=== PATIENT | male | born 1960 | race Caucasian/White ===

== ENCOUNTER 2022-09-26 05:30 | Inpatient (IN) | payer OTHER ==
[~2022-09-26] VITALS: Ht 172.7 cm; Wt 79.8 kg
[2022-09-26] MEDS ORDERED: CEFAZOLIN SOD 2 GM in D5W 50 ML IV ONE (06:00)
[2022-09-26] MEDS ORDERED: ACETAMINOPHEN 500 MG TABLET PO ONE (06:00)
[2022-09-26] MEDS ORDERED: CELECOXIB 100 MG CAPSULE PO ONE (06:00)
[2022-09-26] MEDS ORDERED: GABAPENTIN 300 MG CAPSULE PO ONE (06:00)
[2022-09-26] MEDS ORDERED: SCOPOLAMINE HYDROBROMIDE 1 MG PATCH .72 H (TRANSDERM-SCOP) TD ONE ×2 (06:00→06:16)
[2022-09-26] MEDS ORDERED: oxyCODONE HCL 10 MG TAB.ER.12H PO ONE ×2 (06:00→06:16)
[2022-09-26] MEDS ORDERED: ACETAMINOPHEN 500 MG TABLET ONE (06:02)
[2022-09-26] MEDS ORDERED: CELECOXIB 100 MG CAPSULE ONE (06:02)
[2022-09-26] MEDS ORDERED: GABAPENTIN 300 MG CAPSULE ONE (06:16)
[2022-09-26] MEDS ORDERED: SIMV-341 PO (07:03)
[2022-09-26] MEDS ORDERED: LEVO137T2 PO (07:03)
[2022-09-26] MEDS ORDERED: KETOROLAC TROMETHAMINE 30 MG VIAL ONE (07:30)
[2022-09-26] MEDS ORDERED: MIDAZOLAM HCL/PF 2 MG/2 ML SYRINGE ONE (07:30)
[2022-09-26] MEDS ORDERED: SEVOFLURANE 15 MIN GAS INH ONE (07:30)
[2022-09-26] MEDS ORDERED: TRANEXAMIC ACID 1,000 MG/10 ML VIAL ONE (07:30)
[2022-09-26] MEDS ORDERED: METOCLOPRAMIDE HCL 10 MG/2 ML VIAL ONE (07:30)
[2022-09-26] MEDS ORDERED: ePHEDrine sulfate 50 MG/ML VIAL ONE (07:30)
[2022-09-26] MEDS ORDERED: ONDANSETRON HCL 4 MG/2 ML VIAL ONE (07:30)
[2022-09-26] MEDS ORDERED: PROPOFOL 200MG/ 20ML VIAL (DIPRIVAN) IV ONE (07:30)
[2022-09-26] MEDS ORDERED: GLYCOPYRROLATE 0.2 MG/ML VIAL ONE (07:30)
[2022-09-26] MEDS ORDERED: NS 1000 ML IV.SOLN IV ONE (07:30)
[2022-09-26] MEDS ORDERED: fentaNYL CITRATE/PF 100 MCG/2 ML AMP ONE (07:30)
[2022-09-26] MEDS ORDERED: VANCOMYCIN HCL 1000 MG/VIAL IV ONE (07:30)
[2022-09-26] MEDS ORDERED: DEXAMETHASONE SOD PHOSPHATE 4 MG/ML VIAL ONE (07:30)
[2022-09-26] MEDS ORDERED: KETOROLAC TROMETHAMINE 30 MG VIAL IVP PRN (09:00)
[2022-09-26] MEDS ORDERED: NALOXONE HCL 0.4 MG/ML AMP (NARCAN) IVP PRN ×6 (09:00→10:30)
[2022-09-26] MEDS ORDERED: ePHEDrine sulfate 50 MG/ML VIAL IVP PRN (09:00)
[2022-09-26] MEDS ORDERED: MEPERIDINE HCL/PF 25 MG/ML DISP.SYRIN IVP PRN (09:00)
[2022-09-26] MEDS ORDERED: ONDANSETRON HCL 4 MG/2 ML VIAL IVP PRN ×2 (09:00→11:45)
[2022-09-26] MEDS ORDERED: HYDROmorphone 1 MG/ML INJ. CARTRIDGE IVP PRN ×5 (09:00→11:00)
[2022-09-26] MEDS ORDERED: LR 1,000 ML IV SCH (09:00)
[2022-09-26] MEDS ORDERED: BUPIVACAINE LIPOSOME/PF 266 MG/20 ML VIAL INFIL ONE (09:34)
[2022-09-26] MEDS ORDERED: LACTULOSE 20 GM/30 ML UDC PO PRN (10:30)
[2022-09-26] MEDS ORDERED: DIPHENHYDRAMINE HCL 25 MG CAPSULE PO PRN (10:30)
[2022-09-26] MEDS ORDERED: BISACODYL 10 MG/SUPPOSITORY RC PRN (10:30)
[2022-09-26] MEDS ORDERED: METOCLOPRAMIDE HCL 10 MG/2 ML VIAL IVP PRN (10:30)
[2022-09-26] MEDS ORDERED: HYDROmorphone 1 MG/ML INJ. CARTRIDGE ONE (10:46)
[2022-09-26] MEDS ORDERED: oxyCODONE HCL 5 MG TABLET PO PRN ×2 (11:00)
[2022-09-26] MEDS ORDERED: traMADol HCL HCL 50 MG TABLET (ULTRAM) PO PRN (11:00)
[2022-09-26] MEDS ORDERED: LORATADINE 10 MG TABLET PO PRN (11:00)
[2022-09-26] MEDS ORDERED: NS 500 ML IV ONE (11:55)
[2022-09-26 12:36] VITALS: BP_SYST 136; PULSE 82; RESP 16; TEMP 96.4; O2SAT 92
[2022-09-26] MEDS: ceFAZolin SODIUM 2 GM in D5W 50 ML IV SCH ×2 (13:57→22:18)
[2022-09-26] MEDS: KETOROLAC TROMETHAMINE 10 MG TABLET (TORADOL) PO SCH ×2 (13:58→22:00)
[2022-09-26] MEDS: ACETAMINOPHEN 500 MG TABLET PO SCH ×2 (13:58→22:17)
[2022-09-26] MEDS ORDERED: NACL 0.9% 1,000 ML IV SCH ×2 (16:57→17:00)
[2022-09-26] MEDS: NACL 0.9% 1,000 ML IV SCH (17:12)
[2022-09-26 18:40] VITALS: BP_SYST 81; PULSE 59; RESP 18; TEMP 97.8
[2022-09-26 20:00] VITALS: BP_SYST 97; PULSE 73; RESP 18; TEMP 98; O2SAT 100
[2022-09-26] MEDS: SENNOSIDES/DOCUSATE SODIUM 1 TAB TABLET(SENOKOT-S) PO SCH (22:15)
[2022-09-27] VITALS (7 sets, daily range): BP systolic 80–107; PULSE 74–94; RESP 18–19; TEMP 97.6–98.4; O2SAT 95–97
[2022-09-27] MEDS: NACL 0.9% 1,000 ML IV SCH (03:19)
[2022-09-27 05:53] LABS: BASOPHILS % (AUTO) 0.3 % (0.0-2.0); EOSINOPHILS # (AUTO) 0.2 K/uL (0.0-0.4); EOSINOPHILS % (AUTO) 1.7 % (0.0-4.0); HEMATOCRIT 33.9 % (36-54); HEMOGLOBIN 11.2 g/dL (14.0-18.0); LYMPHOCYTES # (AUTO) 1.4 K/uL (1.0-5.5); LYMPHOCYTES % (AUTO) 15.4 % (20.5-51.5); MEAN CORPUSCULAR HEMOGLOBIN 30 pg (27-31); MEAN CORPUSCULAR HGB CONC 33 % (32-36); MEAN CORPUSCULAR VOLUME 90 fL (79.0-98.0); MONOCYTES # (AUTO) 0.7 K/uL (0.0-1.0); MONOCYTES % (AUTO) 7.9 % (1.7-9.3); NEUTROPHILS # (AUTO) 6.6 K/uL (1.8-7.7); NEUTROPHILS % (AUTO) 74.7 % (40.0-70.0); PLATELET COUNT (AUTO) 211 K/uL (130-430); RED BLOOD CELL COUNT(AUTO) 3.74 MIL/uL (4.2-6.2); RED CELL DISTRIBUTION WIDTH 13.1 % (9.0-15.0); WHITE BLOOD COUNT (AUTO) 8.8 K/uL (4.8-10.8)
[2022-09-27 06:09] LABS: ALBUMIN 2.7 g/dL (3.4-4.8); CALCIUM 7.8 mg/dL (8.4-11.0); CREATININE 0.89 mg/dL (0.55-1.30); POTASSIUM 3.4 mmol/L (3.5-5.1); TOTAL BILIRUBIN 0.5 mg/dL (0.0-1.0); TOTAL PROTEIN, SERUM 4.8 g/dL (6.4-8.3)
[2022-09-27] MEDS: ACETAMINOPHEN 500 MG TABLET PO SCH ×2 (06:20→14:29)
[2022-09-27] MEDS: KETOROLAC TROMETHAMINE 10 MG TABLET (TORADOL) PO SCH (06:21)
[2022-09-27] MEDS: ceFAZolin SODIUM 2 GM in D5W 50 ML IV SCH (06:21)
[2022-09-27] MEDS ORDERED: LEVOTHYROXINE SODIUM 0.137 MG TABLET PO SCH (07:00)
[2022-09-27] MEDS ORDERED: POTASSIUM CHLORIDE 20 MEQ/PKT PACKET PO ONE (08:00)
[2022-09-27] MEDS ORDERED: DECADRON 4 MG TABLET PO SCH (09:00)
[2022-09-27] MEDS ORDERED: SIMVASTATIN 10 MG TABLET PO SCH (09:00)
[2022-09-27] MEDS ORDERED: ASPIRIN 81 MG TAB.CHEW PO SCH (09:00)
[2022-09-27] MEDS: SENNOSIDES/DOCUSATE SODIUM 1 TAB TABLET(SENOKOT-S) PO SCH (09:51)
[2022-09-27] MEDS ORDERED: CELECOXIB 200 MG CAPSULE PO SCH (11:00)
== END 2022-09-27 14:46 | disposition home health service (06) | DRG 470 ==
LOC: SMU 05:30
PROVIDERS: ADMIT Student in an Organized Health Care Education/Training Program; ATTEND Student in an Organized Health Care Education/Training Program
PROC: 0SRB04Z Replacement of Left Hip Joint with Ceramic on Polyethylene Synthetic Substitute, Open Approach (ICD-10-PCS; principal; 2022-09-26 07:30)
DX: M16.12 Unilateral primary osteoarthritis, left hip (principal); E44.1 Mild protein-calorie malnutrition; I95.1 Orthostatic hypotension; Z68.26 Body mass index [BMI] 26.0-26.9, adult
CPT/HCPCS: 36415; 72170-TC; 76001; 80053; 85025; 87081; 88305; 88311; 96379; 97116-GP; 97163-GP; 97530-GP; A4649; C1713; C1776; C9290; J0690; J1100; J1170; J1885; J2405; J2704; J2765; J3010; J3370; J3465; J3490; J7030; J7060; J8540

== ENCOUNTER 2023-10-07 17:49 | Inpatient (IN) | payer OTHER ==
[~2023-10-07] VITALS: Ht 172.7 cm; Wt 73.6 kg
[~2023-10-07 17:49] MED LIST: LEVO137T2 PO; SIMV-341 PO
[2023-10-07 18:13] VITALS: BP_SYST 183; PULSE 90; RESP 18; TEMP 97.8; O2SAT 95
[2023-10-07] MEDS: LABETALOL HCL 20 MG/4 ML CARTRIDGE IVP ONE (18:37)
[2023-10-07 18:39] LABS: BASOPHILS # (AUTO) 0.2 K/uL (0.0-0.2); BASOPHILS % (AUTO) 3.2 % (0.0-2.0); EOSINOPHILS # (AUTO) 0.5 K/uL (0.0-0.4); EOSINOPHILS % (AUTO) 6.9 % (0.0-4.0); HEMATOCRIT 44.1 % (36-54); HEMOGLOBIN 15.4 g/dL (14.0-18.0); LYMPHOCYTES # (AUTO) 1.7 K/uL (1.0-5.5); LYMPHOCYTES % (AUTO) 22.8 % (20.5-51.5); MEAN CORPUSCULAR HEMOGLOBIN 31 pg (27-31); MEAN CORPUSCULAR HGB CONC 35 % (32-36); MEAN CORPUSCULAR VOLUME 88 fL (79.0-98.0); MONOCYTES # (AUTO) 0.6 K/uL (0.0-1.0); MONOCYTES % (AUTO) 7.9 % (1.7-9.3); NEUTROPHILS # (AUTO) 4.4 K/uL (1.8-7.7); NEUTROPHILS % (AUTO) 59.2 % (40.0-70.0); PLATELET COUNT (AUTO) 271 K/uL (130-430); RED BLOOD CELL COUNT(AUTO) 5.03 MIL/uL (4.2-6.2); RED CELL DISTRIBUTION WIDTH 13.1 % (9.0-15.0); WHITE BLOOD COUNT (AUTO) 7.4 K/uL (4.8-10.8)
[2023-10-07 19:13] LABS: ANION GAP 6 (5-15); CALCIUM 9.2 mg/dL (8.4-11.0); CARBON DIOXIDE 32 mmol/L (23-29); CHLORIDE 101 mmol/L (98-107); CREATININE 1.13 mg/dL (0.55-1.30); GFR AFRICAN AMERICAN 85 mL/min (>90); GLUCOSE 124 mg/dL (74-106); POTASSIUM 3.3 mmol/L (3.5-5.1); SODIUM SERUM 139 mmol/L (136-145); UREA NITROGEN, BLOOD 13 mg/dL (8-21)
[2023-10-07 19:20] LABS: GFR NON AFRICAN-AMERICAN 70 mL/min (>90)
[2023-10-07] MEDS ORDERED: METO25TA6 PO (19:51)
[2023-10-07] MEDS: METOPROLOL TARTRATE 25 MG TABLET PO ONE (20:31)
[2023-10-07] MEDS: ACETAMINOPHEN 500 MG TABLET PO ONE (20:47)
[2023-10-07] MEDS ORDERED: AUG875 PO (21:00)
[2023-10-07] MEDS: MORPHINE 2 MG/ML INJ. SYRINGE IVP ONE (21:39)
[2023-10-07 22:53] VITALS: BP_SYST 156; PULSE 61; RESP 18; TEMP 97
[2023-10-08 00:02] VITALS: BP_SYST 144; PULSE 63; RESP 18; TEMP 97.5; O2SAT 96
[2023-10-08] MEDS: AMOXICILLIN/POTASSIUM CLAV 875 MG TABLET PO ONE (05:32)
[2023-10-08 08:18] VITALS: BP_SYST 112; PULSE 67; RESP 18; TEMP 97.8; O2SAT 100
[2023-10-08 10:41] VITALS: O2SAT 100
[2023-10-08 12:02] VITALS: BP_SYST 142; PULSE 70; RESP 18; TEMP 97.4; O2SAT 99
[2023-10-08] MEDS ORDERED: HYDROcodone/ACETAMIN 5-325 MG TAB (NORCO/ VICODIN) PO PRN (13:00)
[2023-10-08] MEDS ORDERED: ACETAMINOPHEN 325 MG TABLET PO PRN (13:00)
[2023-10-08] MEDS ORDERED: LORazepam 2 MG/ML VIAL IVP PRN (13:00)
[2023-10-08] MEDS ORDERED: ONDANSETRON HCL 4 MG/2 ML VIAL IVP PRN (13:00)
[2023-10-08] MEDS ORDERED: NALOXONE HCL 0.4 MG/ML AMP (NARCAN) IVP PRN ×2 (13:00)
[2023-10-08] MEDS: LEVOTHYROXINE SODIUM 0.137 MG TABLET PO ONE (16:08)
[2023-10-08] MEDS: METOPROLOL TARTRATE 25 MG TABLET PO ONE (16:08)
[2023-10-08] MEDS: NORMAL SALINE 5 ML DISP.SYRIN IVF SCH (16:09)
[2023-10-08 16:42] VITALS: BP_SYST 152; PULSE 69; RESP 17; TEMP 97.6; O2SAT 97
[2023-10-08 20:00] VITALS: BP_SYST 120; PULSE 63; RESP 18; TEMP 98.9; O2SAT 98
[2023-10-08] MEDS: AMOXICILLIN/POTASSIUM CLAV 875 MG TABLET PO SCH (21:00)
[2023-10-08] MEDS: SIMVASTATIN 20 MG TABLET PO SCH (21:18)
[2023-10-08] MEDS: METOPROLOL TARTRATE 25 MG TABLET PO SCH (21:19)
[2023-10-08] MEDS: ACETAMINOPHEN 325 MG TABLET PO PRN (23:01)
[2023-10-09 00:12] VITALS: BP_SYST 111; PULSE 64; RESP 16; TEMP 98.6; O2SAT 99
[2023-10-09] MEDS: HYDROcodone/ACETAMIN 10-325 MG TAB PO PRN (03:20)
[2023-10-09 06:26] LABS: ALBUMIN 3.3 g/dL (3.4-4.8); CALCIUM 8.9 mg/dL (8.4-11.0); CREATININE 1.24 mg/dL (0.55-1.30); PHOSPHORUS 3.7 mg/dL (2.7-4.5); POTASSIUM 3.9 mmol/L (3.5-5.1); TOTAL BILIRUBIN 0.4 mg/dL (0.0-1.0); TOTAL PROTEIN, SERUM 6.1 g/dL (6.4-8.3)
[2023-10-09] MEDS: LEVOTHYROXINE SODIUM 0.137 MG TABLET PO SCH (06:44)
[2023-10-09 06:52] LABS: BASOPHILS # (AUTO) 0.1 K/uL (0.0-0.2); BASOPHILS % (AUTO) 0.7 % (0.0-2.0); EOSINOPHILS # (AUTO) 0.7 K/uL (0.0-0.4); EOSINOPHILS % (AUTO) 9.2 % (0.0-4.0); HEMATOCRIT 43.1 % (36-54); HEMOGLOBIN 14.4 g/dL (14.0-18.0); LYMPHOCYTES # (AUTO) 1.4 K/uL (1.0-5.5); LYMPHOCYTES % (AUTO) 17.9 % (20.5-51.5); MEAN CORPUSCULAR HEMOGLOBIN 30 pg (27-31); MEAN CORPUSCULAR HGB CONC 33 % (32-36); MEAN CORPUSCULAR VOLUME 90 fL (79.0-98.0); MONOCYTES # (AUTO) 0.7 K/uL (0.0-1.0); MONOCYTES % (AUTO) 8.8 % (1.7-9.3); NEUTROPHILS # (AUTO) 5.1 K/uL (1.8-7.7); NEUTROPHILS % (AUTO) 63.4 % (40.0-70.0); PLATELET COUNT (AUTO) 259 K/uL (130-430); RED BLOOD CELL COUNT(AUTO) 4.79 MIL/uL (4.2-6.2); RED CELL DISTRIBUTION WIDTH 13.4 % (9.0-15.0); WHITE BLOOD COUNT (AUTO) 8.1 K/uL (4.8-10.8)
[2023-10-09 08:09] VITALS: BP_SYST 133; PULSE 63; RESP 18; TEMP 97.3; O2SAT 98
[2023-10-09 09:30] VITALS: O2SAT 98
[2023-10-09] MEDS ORDERED: CARV6.2554 PO (10:29)
[2023-10-09 12:32] VITALS: BP_SYST 96; PULSE 58; RESP 18; TEMP 99; O2SAT 99
[2023-10-09 13:53] VITALS: BP_SYST 96; PULSE 58; RESP 18; TEMP 99; O2SAT 98
[2023-10-09] MEDS ORDERED: CARVEDILOL 12.5 MG TABLET (COREG) PO SCH (21:00)
== END 2023-10-09 15:16 | disposition home or self-care (01) | DRG 305 ==
LOC: SED 17:49 → UNDOADMIN 22:37 → STU 22:37 → SMU 10-09 13:47
PROVIDERS: ADMIT Preventive Medicine Preventive Medicine/Occupational Environmental Medicine; ATTEND Preventive Medicine Preventive Medicine/Occupational Environmental Medicine
DX: I16.0 Hypertensive urgency (principal); E44.0 Moderate protein-calorie malnutrition; E88.09 Other disorders of plasma-protein metabolism, not elsewhere classified; E78.5 Hyperlipidemia, unspecified; E87.6 Hypokalemia; R73.9 Hyperglycemia, unspecified; E03.9 Hypothyroidism, unspecified; Z85.89 Personal history of malignant neoplasm of other organs and systems; Z79.899 Other long term (current) drug therapy; Z88.8 Allergy status to other drugs, medicaments and biological substances; Z68.24 Body mass index [BMI] 24.0-24.9, adult
CPT/HCPCS: 36415; 70450-TC; 71045; 80048; 80053; 83735; 83880; 84100; 84484; 85025; 93005; 93306; 96374; 99285; G0378; J2270

== ENCOUNTER 2023-10-17 09:02 | Inpatient (IN) | payer OTHER ==
[~2023-10-17] VITALS: Ht 172.7 cm; Wt 74.4 kg
[~2023-10-17 09:02] MED LIST changes: +AUG875 PO; +CARV6.2554 PO
[2023-10-17 09:13] VITALS: BP_SYST 195; PULSE 73; RESP 16; TEMP 97.5; O2SAT 96
[2023-10-17] MEDS: PROCHLORPERAZINE EDISYLATE 10 MG/2 ML VIAL IM ONE (09:51)
[2023-10-17] MEDS: KETOROLAC TROMETHAMINE 30 MG VIAL IM ONE (09:51)
[2023-10-17] MEDS: cloNIDine HCL 0.1 MG TABLET PO ONE (09:52)
[2023-10-17] MEDS: hydrALAZINE HCL 20 MG/ML VIAL IVP ONE (11:10)
[2023-10-17] MEDS: MORPHINE 4 MG INJ. 4 MG/ML VIAL IVP ONE (11:12)
[2023-10-17] MEDS ORDERED: DICL50TA7 PO (12:31)
[2023-10-17] MEDS ORDERED: PHE25 PO (12:31)
[2023-10-17] MEDS ORDERED: LORA-259 (12:31)
[2023-10-17] MEDS ORDERED: CYCL10TA25 (12:31)
[2023-10-17] MEDS ORDERED: PRAV40TA63 (12:32)
[2023-10-17] MEDS ORDERED: OXYC-117 (12:34)
[2023-10-17 12:38] LABS: BASOPHILS % (AUTO) 0.4 % (0.0-2.0); EOSINOPHILS # (AUTO) 0.1 K/uL (0.0-0.4); EOSINOPHILS % (AUTO) 0.8 % (0.0-4.0); LYMPHOCYTES % (AUTO) 8.6 % (20.5-51.5); MEAN CORPUSCULAR HEMOGLOBIN 30 pg (27-31); MEAN CORPUSCULAR HGB CONC 33 % (32-36); MEAN CORPUSCULAR VOLUME 89 fL (79.0-98.0); MONOCYTES # (AUTO) 0.5 K/uL (0.0-1.0); MONOCYTES % (AUTO) 4.2 % (1.7-9.3); NEUTROPHILS # (AUTO) 9.5 K/uL (1.8-7.7); PLATELET COUNT (AUTO) 255 K/uL (130-430); RED BLOOD CELL COUNT(AUTO) 5.08 MIL/uL (4.2-6.2); RED CELL DISTRIBUTION WIDTH 12.8 % (9.0-15.0); WHITE BLOOD COUNT (AUTO) 11.1 K/uL (4.8-10.8)
[2023-10-17 12:58] LABS: ANION GAP 3 (5-15); CALCIUM 9.3 mg/dL (8.4-11.0); CARBON DIOXIDE 33 mmol/L (23-29); CHLORIDE 101 mmol/L (98-107); CREATININE 1.18 mg/dL (0.55-1.30); GFR AFRICAN AMERICAN 81 mL/min (>90); GLUCOSE 113 mg/dL (74-106); POTASSIUM 4.7 mmol/L (3.5-5.1); SODIUM SERUM 137 mmol/L (136-145); UREA NITROGEN, BLOOD 15 mg/dL (8-21)
[2023-10-17 13:05] LABS: GFR NON AFRICAN-AMERICAN 67 mL/min (>90)
[2023-10-17] MEDS ORDERED: FIORCET PO PRN (14:00)
[2023-10-17] MEDS: DIVALPROEX SODIUM 250 MG TABLET(DEPAKOTE) PO ONE (15:32)
[2023-10-17] MEDS: CYCLOBENZAPRINE HCL 10 MG TABLET (FLEXERIL) PO SCH (15:34)
[2023-10-17] MEDS: traMADol HCL HCL 50 MG TABLET (ULTRAM) PO PRN (17:50)
[2023-10-17] MEDS: DIVALPROEX SODIUM 250 MG TABLET(DEPAKOTE) PO SCH (21:26)
[2023-10-17] MEDS: ONDANSETRON HCL 4 MG/2 ML VIAL IVP PRN (21:28)
[2023-10-17] MEDS: HYDROmorphone 1 MG/ML INJ. CARTRIDGE IVP PRN (21:28)
[2023-10-17 22:00] VITALS: BP_SYST 209; PULSE 84; RESP 16; TEMP 97.8; O2SAT 97
[2023-10-18] VITALS (7 sets, daily range): BP systolic 133–159; PULSE 72–84; RESP 15–17; TEMP 98–98.7; O2SAT 95–98
[2023-10-18 08:24] LABS: CALCIUM 9.1 mg/dL (8.4-11.0); CREATININE 1.03 mg/dL (0.55-1.30); POTASSIUM 3.6 mmol/L (3.5-5.1)
[2023-10-18 10:50] LABS: BASOPHILS % (AUTO) 0.4 % (0.0-2.0); EOSINOPHILS # (AUTO) 0.2 K/uL (0.0-0.4); EOSINOPHILS % (AUTO) 2.7 % (0.0-4.0); HEMATOCRIT 42.9 % (36-54); HEMOGLOBIN 14.6 g/dL (14.0-18.0); LYMPHOCYTES % (AUTO) 22.1 % (20.5-51.5); MEAN CORPUSCULAR HEMOGLOBIN 30 pg (27-31); MEAN CORPUSCULAR HGB CONC 34 % (32-36); MEAN CORPUSCULAR VOLUME 88 fL (79.0-98.0); MONOCYTES # (AUTO) 0.8 K/uL (0.0-1.0); MONOCYTES % (AUTO) 8.7 % (1.7-9.3); NEUTROPHILS # (AUTO) 5.8 K/uL (1.8-7.7); NEUTROPHILS % (AUTO) 66.1 % (40.0-70.0); PLATELET COUNT (AUTO) 263 K/uL (130-430); RED BLOOD CELL COUNT(AUTO) 4.86 MIL/uL (4.2-6.2); WHITE BLOOD COUNT (AUTO) 8.8 K/uL (4.8-10.8)
[2023-10-18] MEDS: ACETAMINOPHEN 500 MG TABLET PO PRN (13:24)
[2023-10-18 22:23] LABS: COLLECTION TIME,URINE 24 HR; SODIUM TIMED,URINE 39 mmol/L; TOTAL VOLUME 24HRS,URINE 3100 mL
[2023-10-18 22:24] LABS: SODIUM URINE, 24HR CALC 121 mmol/24H (40-220)
[2023-10-19] VITALS: BP_SYST 133; BP_SYST 157; PULSE 74; PULSE 78; RESP 16; TEMP 97.4; TEMP 98.3; O2SAT 96; O2SAT 98
[2023-10-19 05:13] LABS: BASOPHILS # (AUTO) 0.1 K/uL (0.0-0.2); EOSINOPHILS # (AUTO) 0.5 K/uL (0.0-0.4); EOSINOPHILS % (AUTO) 7.6 % (0.0-4.0); HEMATOCRIT 43.3 % (36-54); HEMOGLOBIN 14.8 g/dL (14.0-18.0); LYMPHOCYTES % (AUTO) 27.7 % (20.5-51.5); MEAN CORPUSCULAR HEMOGLOBIN 30 pg (27-31); MEAN CORPUSCULAR HGB CONC 34 % (32-36); MEAN CORPUSCULAR VOLUME 88 fL (79.0-98.0); MONOCYTES # (AUTO) 0.8 K/uL (0.0-1.0); MONOCYTES % (AUTO) 11.3 % (1.7-9.3); NEUTROPHILS # (AUTO) 3.7 K/uL (1.8-7.7); NEUTROPHILS % (AUTO) 52.4 % (40.0-70.0); PLATELET COUNT (AUTO) 265 K/uL (130-430); RED CELL DISTRIBUTION WIDTH 12.9 % (9.0-15.0); WHITE BLOOD COUNT (AUTO) 7.1 K/uL (4.8-10.8)
[2023-10-19 05:38] LABS: CALCIUM 8.6 mg/dL (8.4-11.0); CREATININE 1.28 mg/dL (0.55-1.30); POTASSIUM 3.7 mmol/L (3.5-5.1)
[2023-10-19 07:00] VITALS: O2SAT 98
[2023-10-19 08:00] VITALS: BP_SYST 162; PULSE 66; RESP 18; TEMP 98.9; O2SAT 98
[2023-10-19] MEDS: ALPRAZolam 0.25 MG TABLET PO ONE (11:15)
[2023-10-19] MEDS: ATENOLOL 25 MG TABLET(TENORMIN) PO ONE (11:15)
[2023-10-19] MEDS: ATENOLOL 25 MG TABLET(TENORMIN) ONE (12:12)
[2023-10-19] MEDS: ALPRAZolam 0.25 MG TABLET ONE (12:13)
[2023-10-19 16:24] VITALS: BP_SYST 88; PULSE 63; RESP 16; TEMP 98.4; O2SAT 99
[2023-10-19] MEDS: ALPRAZolam 0.25 MG TABLET PO SCH (16:35)
[2023-10-19 20:00] VITALS: BP_SYST 93; PULSE 72; RESP 16; TEMP 98.2; O2SAT 95
[2023-10-20] VITALS (7 sets, daily range): BP systolic 81–122; PULSE 56–88; RESP 16–20; TEMP 97.8–98.4; O2SAT 95–99
[2023-10-20 08:52] LABS: BASOPHILS % (AUTO) 0.8 % (0.0-2.0); EOSINOPHILS # (AUTO) 0.7 K/uL (0.0-0.4); EOSINOPHILS % (AUTO) 11.2 % (0.0-4.0); HEMATOCRIT 44.3 % (36-54); HEMOGLOBIN 14.7 g/dL (14.0-18.0); LYMPHOCYTES # (AUTO) 1.8 K/uL (1.0-5.5); LYMPHOCYTES % (AUTO) 29.6 % (20.5-51.5); MEAN CORPUSCULAR HEMOGLOBIN 30 pg (27-31); MEAN CORPUSCULAR HGB CONC 33 % (32-36); MEAN CORPUSCULAR VOLUME 90 fL (79.0-98.0); MONOCYTES # (AUTO) 0.6 K/uL (0.0-1.0); MONOCYTES % (AUTO) 9.3 % (1.7-9.3); NEUTROPHILS % (AUTO) 49.1 % (40.0-70.0); PLATELET COUNT (AUTO) 236 K/uL (130-430); RED BLOOD CELL COUNT(AUTO) 4.94 MIL/uL (4.2-6.2); RED CELL DISTRIBUTION WIDTH 13.1 % (9.0-15.0); WHITE BLOOD COUNT (AUTO) 6.1 K/uL (4.8-10.8)
[2023-10-20 09:00] LABS: CREATININE 1.25 mg/dL (0.55-1.30)
[2023-10-20] MEDS ORDERED: ATENOLOL 25 MG TABLET(TENORMIN) PO SCH (09:00)
[2023-10-20] MEDS: LOSARTAN POTASSIUM 25 MG TABLET PO SCH (09:00)
[2023-10-21 00:41] VITALS: BP_SYST 123; PULSE 69; RESP 18; TEMP 96.5; O2SAT 97
[2023-10-21 06:52] LABS: BASOPHILS # (AUTO) 0.1 K/uL (0.0-0.2); EOSINOPHILS # (AUTO) 0.8 K/uL (0.0-0.4); HEMATOCRIT 42.5 % (36-54); HEMOGLOBIN 14.5 g/dL (14.0-18.0); LYMPHOCYTES # (AUTO) 1.7 K/uL (1.0-5.5); LYMPHOCYTES % (AUTO) 27.3 % (20.5-51.5); MEAN CORPUSCULAR HEMOGLOBIN 30 pg (27-31); MEAN CORPUSCULAR HGB CONC 34 % (32-36); MEAN CORPUSCULAR VOLUME 89 fL (79.0-98.0); MONOCYTES # (AUTO) 0.7 K/uL (0.0-1.0); NEUTROPHILS % (AUTO) 47.7 % (40.0-70.0); PLATELET COUNT (AUTO) 255 K/uL (130-430); RED CELL DISTRIBUTION WIDTH 12.9 % (9.0-15.0); WHITE BLOOD COUNT (AUTO) 6.3 K/uL (4.8-10.8)
[2023-10-21 06:56] LABS: CALCIUM 8.8 mg/dL (8.4-11.0); CREATININE 1.11 mg/dL (0.55-1.30); POTASSIUM 4.1 mmol/L (3.5-5.1)
[2023-10-21] MEDS ORDERED: LOSA-412 PO (07:16)
[2023-10-21 08:04] VITALS: BP_SYST 124; PULSE 63; RESP 16; TEMP 97.6; O2SAT 96
[2023-10-21 09:44] VITALS: O2SAT 96
[2023-10-21 11:00] VITALS: BP_SYST 142; PULSE 78; RESP 15; TEMP 97.1; O2SAT 96
[2023-10-21 15:01] VITALS: BP_SYST 120; PULSE 86; RESP 16; TEMP 96.5; O2SAT 97
[2023-10-21 20:00] VITALS: BP_SYST 122; PULSE 77; RESP 18; TEMP 98; O2SAT 98
[2023-10-22 00:01] VITALS: BP_SYST 98; PULSE 75; RESP 18; TEMP 97; O2SAT 97
[2023-10-22 06:26] LABS: BASOPHILS # (AUTO) 0.2 K/uL (0.0-0.2); BASOPHILS % (AUTO) 2.5 % (0.0-2.0); EOSINOPHILS # (AUTO) 0.8 K/uL (0.0-0.4); EOSINOPHILS % (AUTO) 12.4 % (0.0-4.0); HEMATOCRIT 42.7 % (36-54); HEMOGLOBIN 14.8 g/dL (14.0-18.0); LYMPHOCYTES # (AUTO) 1.6 K/uL (1.0-5.5); LYMPHOCYTES % (AUTO) 25.1 % (20.5-51.5); MEAN CORPUSCULAR HEMOGLOBIN 31 pg (27-31); MEAN CORPUSCULAR HGB CONC 35 % (32-36); MEAN CORPUSCULAR VOLUME 89 fL (79.0-98.0); MONOCYTES # (AUTO) 0.5 K/uL (0.0-1.0); MONOCYTES % (AUTO) 7.7 % (1.7-9.3); NEUTROPHILS # (AUTO) 3.3 K/uL (1.8-7.7); NEUTROPHILS % (AUTO) 52.3 % (40.0-70.0); PLATELET COUNT (AUTO) 239 K/uL (130-430); RED BLOOD CELL COUNT(AUTO) 4.82 MIL/uL (4.2-6.2); RED CELL DISTRIBUTION WIDTH 13.1 % (9.0-15.0); WHITE BLOOD COUNT (AUTO) 6.3 K/uL (4.8-10.8)
[2023-10-22 06:37] LABS: CALCIUM 9.1 mg/dL (8.4-11.0); CREATININE 1.23 mg/dL (0.55-1.30); POTASSIUM 4.6 mmol/L (3.5-5.1)
[2023-10-22 07:54] VITALS: BP_SYST 121; PULSE 64; RESP 18; TEMP 97.9; O2SAT 98
[2023-10-22 09:28] VITALS: BP_SYST 139; PULSE 77; RESP 18; TEMP 97.9; O2SAT 98
[2023-10-23 11:07] LABS: CORTISOL, URINARY FREE 78 ug/L (Undefined); CORTISOL, URINARY FREE 24HR 242 ug/24 hr (5-64)
[2023-10-27 04:06] LABS: VANILLYLMANDELIC ACID, 24H UR 4.7 mg/24 hr (0.0-7.5)
== END 2023-10-22 10:45 | disposition home health service (06) | DRG 103 ==
LOC: SED 09:02 → STU 13:27 → OBSVTOIN 10-20 08:45 → SMU 10-20 22:51
PROVIDERS: ADMIT Specialist; ATTEND Specialist
DX: G44.219 Episodic tension-type headache, not intractable (principal); I16.1 Hypertensive emergency; D72.829 Elevated white blood cell count, unspecified; E03.9 Hypothyroidism, unspecified; E78.5 Hyperlipidemia, unspecified; I95.9 Hypotension, unspecified; I10 Essential (primary) hypertension; Z85.89 Personal history of malignant neoplasm of other organs and systems; Z79.899 Other long term (current) drug therapy; Z88.8 Allergy status to other drugs, medicaments and biological substances
CPT/HCPCS: 36415; 70551; 72141; 76770; 80048; 82384; 82530; 82533; 83605; 84300-TC; 84484; 84585; 85025; 93005; 96372; 97110-GP; 97116-GP; 97530-GP; 99285; G0378; J0360; J0780; J1170; J1885; J2270; J2405